=== PATIENT | male | born 1980 | race Caucasian/White ===

== ENCOUNTER 2021-09-04 16:09 | Emergency (ER) | payer BC | END 2021-09-04 18:50 | disposition home or self-care (01) | LOC: ER1 16:09 | DX: S06.9X9A Unspecified intracranial injury with loss of consciousness of unspecified duration, initial encounter (principal); S00.01XA Abrasion of scalp, initial encounter; S40.212A Abrasion of left shoulder, initial encounter; S40.211A Abrasion of right shoulder, initial encounter; S30.810A Abrasion of lower back and pelvis, initial encounter; V86.99XA Unspecified occupant of other special all-terrain or other off-road motor vehicle injured in nontraffic accident, initial encounter; Y92.009 Unspecified place in unspecified non-institutional (private) residence as the place of occurrence of the external cause | CPT/HCPCS: 70450; 71045; 72125; 72170; 73560; 96374; 96375; 99284; J2270; J2405 ==